=== PATIENT | male | born 1990 | race Caucasian/White ===

== ENCOUNTER → 2023-01-07 10:34 | Outpatient (CLI) | payer OTHER, SELFPAY ==
[2023-01-07 11:29] LABS: Add Manual Diff / Slide Review NO; Basophils Absolute Auto 100 /uL (0-100); Basophils Percent Auto 1.1 % (0-2); Eosinophils Absolute Auto 200 /uL (0-450); Eosinophils Percent Auto 3.6 % (2-4); Hematocrit 44.1 % (41-53); Hemoglobin 15.8 g/dL (13.5-17.5); Lymphocytes Absolute Auto 1900 /uL (1100-4500); Lymphocytes Percent Auto 38.2 % (25-40); Mean Corpuscular HGB Conc 35.7 % (30-36); Mean Corpuscular Hemoglobin 31.4 PG (26-34); Mean Corpuscular Volume 87.9 fL (80-100); Monocytes Absolute Auto 400 /uL (0-900); Neutrophils Absolute Auto 2400 /uL (1500-7000); Neutrophils Percent Auto 48.1 % (50-75); Platelet Count 189 X10^3/uL (150-400); Red Blood Cell Count 5.02 X10^6/uL (4.5-5.9); Red Cell Distribution Width 13.1 % (11.6-14.8)
[2023-01-07 11:49] LABS: Alanine Aminotransferase 36 IU/L (<50); Albumin 4.7 g/dL (3.5-5.0); Albumin Globulin Ratio 1.4 (1.0-2.8); Alkaline Phosphatase 88 U/L (38-126); Aspartate Aminotransferase 34 IU/L (17-59); BUN Creatinine Ratio 18.4 (6-22); Bilirubin Total 1.2 mg/dL (0.2-1.3); Blood Urea Nitrogen 18 mg/dL (9-20); Calcium 9.4 mg/dL (8.4-10.2); Carbon Dioxide 30 mmol/L (22-32); Chloride 100 mmol/L (98-107); Cholesterol 198 mg/dL (140-199); Estimated Glomerular Filt Rate > 60 mL/min (>60); Globulin 3.4 g/dL (1.7-4.1); Glucose 93 mg/dL (70-100); HDL Cholesterol 44 mg/dL (40-60); HEMOLYSIS < 15 (0-50); LDL Cholesterol Calculated 124 mg/dL (<100); Sodium 138 mmol/L (137-145); Total Protein 8.1 g/dL (6.3-8.2); Triglycerides 151 mg/dL (35-150)
[2023-01-07 12:25] LABS: TSH w/ Reflex to FT4 1.47 uIU/mL (0.47-4.68)
[2023-01-12 13:46] LABS: Percent Free Testosterone 3.56 % (1.50-4.20); Testosterone Total 356.8 ng/dL (264.0-916.0)
== END ==
PROVIDERS: PCP Family Medicine; Referring Provider Family Medicine; Visit Provider Family Medicine
DX: Z00.00 Encounter for general adult medical examination without abnormal findings (principal); R79.89 Other specified abnormal findings of blood chemistry
CPT/HCPCS: 36415; 80053; 80061; 84402; 84403; 84443; 85025

== ENCOUNTER → 2025-03-15 06:35 | Outpatient (CLI) | payer OTHER, SELFPAY ==
[2025-03-15 08:25] LABS: Add Manual Diff / Slide Review NO; Hematocrit 43.3 % (41-53); Hemoglobin 15.5 g/dL (13.5-17.5); Lymphocytes Absolute Auto 1800 /uL (1100-4500); Mean Corpuscular HGB Conc 35.9 % (30-36); Mean Corpuscular Hemoglobin 31.7 PG (26-34); Mean Corpuscular Volume 88.4 fL (80-100); Platelet Count 196 X10^3/uL (150-400)
[2025-03-15 08:40] LABS: HEMOLYSIS < 15 (0-50); Iron 91 ug/dL (49-181)
[2025-03-15 08:41] LABS: Alanine Aminotransferase 32 IU/L (<50); Albumin 4.7 g/dL (3.5-5.0); Albumin Globulin Ratio 1.7 (1.0-2.8); Alkaline Phosphatase 90 U/L (38-126); Blood Urea Nitrogen 14 mg/dL (9-20); Calcium 9.7 mg/dL (8.4-10.2); Carbon Dioxide 28 mmol/L (22-32); Chloride 102 mmol/L (98-107); Estimated Glomerular Filt Rate > 60 mL/min (>60); Globulin 2.8 g/dL (1.7-4.1); Glucose 97 mg/dL (70-99); HEMOLYSIS < 15 (0-50); Potassium 4.2 mmol/L (3.4-5.1); Sodium 139 mmol/L (137-145); Total Protein 7.5 g/dL (6.3-8.2)
[2025-03-15 08:52] LABS: Percent Iron Saturation 27 % (20-50); Total Iron Binding Capacity 338 ug/dL (261-462); Transferrin 282 mg/dL (206-381)
[2025-03-15 09:17] LABS: Ferritin 89 ng/mL (18-464)
[2025-03-16 21:39] LABS: Deamidated Gliadin Ab IgA 6 units (0-19); Deamidated Gliadin Ab IgG 4 units (0-19); Immunoglobulin A,Qn 293 mg/dL (90-386)
== END ==
PROVIDERS: PCP Student in an Organized Health Care Education/Training Program; Referring Provider Student in an Organized Health Care Education/Training Program; Visit Provider Student in an Organized Health Care Education/Training Program
DX: K62.5 Hemorrhage of anus and rectum (principal); K58.9 Irritable bowel syndrome, unspecified; E34.9 Endocrine disorder, unspecified
CPT/HCPCS: 36415; 80053; 82728; 82784; 83516; 83540; 83550; 84403; 85025

== ENCOUNTER 2025-04-14 10:24 | Day surgery (SDC) | payer OTHER, SELFPAY ==
--- NOTE | 2025-04-14 | PATH_ITS ---
[facility] Accession Number: [id number] No. of containers..01 Tissue . 01 Material submitted: . body - SIGMOID COLON . 01 Clinical history: . BIOPSY COLITIS UNCLEAR ETIOLOGY 9-19 PER OPERATIVE NOTE, SITE ID SIGMOID COLON /RR . 01 Diagnosis: SIGMOID COLON, BIOPSY: Colonic mucosa with nonspecific hemorrhage and congestion. Negative for active, chronic, and microscopic colitis. Negative for dysplasia and malignancy. . MRV 04/28/2025 1602 Local . 01 Electronically signed: . Rodney Chambers MD, PhD, Pathologist NPI- [id number] . 01 Gross description: . Received is one formalin-filled container labeled with the patient's name and labeled biopsy colitis, unclear etiology, are four fragments of boyd, soft tissue which range in size from 0.2 x 0.2 x 0.2 cm to 0.3 x 0.2 x 0.2 cm. All fragments are totally submitted in cassette A1. ([id number]) /HOLGER 04/22/2025 2316 Local . 01 Pathologist provided ICD-10: K62.5 . 01 CPT . 196071 Specimen Comment: A courtesy copy of this report has been sent to [facility] Pathology Performed at: [address] [address], [place], [place] [id number] MD Dominick Perez MD Phone: [phone]
--- NOTE | 2025-04-14 06:14 | PM.PREOP ---
Pre-operative Note Interval Note History & Physical reviewed/Exam performed by Physician: Yes Changes to H&P: No ASA Class (for procedural sedation): I
[2025-04-14] MEDS: LACTATED RINGERS 1,000 ML 42 ML IV (10:53)
[2025-04-14 10:54] VITALS: BP 118/68; PULSE 56; RESP 18; TEMP 36.8; O2SAT 98
--- NOTE | 2025-04-14 12:01 | P.OP.COLON_ITS ---
Operative Date/Time/Diagnoses Date of procedure: 04/14/25 Time of procedure: 12:39 Pre-op diagnosis: Rectal bleeding Post-op diagnosis: other (Nonspecific colitis, biopsies taken) Procedure & Clinicians Study performed: Colonoscopy with biopsy Same procedure(s) as scheduled: Yes Indications: 34yo M with rectal bleeding Surgeon: Anival Marinelli Anesthesia Type: MAC +/- Procedure Notes SCOAP/Timeout: Performed Procedure in detail: Colonoscopy Patient placed in left lateral recumbent position. Time out was performed. Procedural sedation was administered by anesthesia. Examination began with a thorough inspection of the perianal area. There was no evidence of fissures, fistulae, external hemorrhoids or cutaneous malignancy. The colonoscope was then placed into the rectum and the lumen was insufflated with carbon dioxide. The scope was carefully advanced forward. Ultimately the cecum was intubated and confirmed by identification of the ileocecal valve, the appendiceal orifice and the confluence of the taenia. The scope was then slowly withdrawn examining the colon thoroughly in all directions. In the rectum, retroflexion of the scope was performed for inspection of the distal rectum and anal canal. ?Significant colonoscopy findings: ?1. Quality of the preparation-good, [place] 3, improved with irrigation/suction ?2. Nonspecific colitis, mostly in sigmoid colon, random biopsies taken in areas of colitis, dilated veins throughout rectosigmoid likely related to inflammation. Biopsy sites required clips due to oozing consistent with colitis picture. No ulcerations. No maria a-anal lesions. No internal hemorrhoid column candidate for internal hemorrhoid banding. Await biopsy results Scope withdrawal time: 20 minutes Findings: colitis Specimen(s): other (sigmoid biopsies) Complications: none Impression: Colitis, non-specific, await biopsy results Post-procedure Recommendations: Will call with biopsy results Plan for aftercare: PACU then home Follow up: as needed Disposition: PACU
[2025-04-14 12:35] VITALS: BP 95/52; PULSE 62; RESP 18; TEMP 36.1; O2SAT 97
[2025-04-14 12:40] VITALS: BP 96/55; PULSE 56; RESP 14; O2SAT 98
[2025-04-14 12:45] VITALS: BP 97/52; PULSE 49; RESP 15; TEMP 36.1; O2SAT 98
[2025-04-14 12:50] VITALS: BP 107/66; PULSE 42; RESP 15; O2SAT 99
[2025-04-14 12:55] VITALS: BP 114/72; PULSE 43; RESP 10; O2SAT 100
== END 2025-04-14 13:10 | disposition home or self-care (01) ==
PROVIDERS: PCP Student in an Organized Health Care Education/Training Program; Referring Provider Surgery; Visit Provider Surgery
PROC: 0DJD8ZZ Inspection of Lower Intestinal Tract, Via Natural or Artificial Opening Endoscopic (ICD-10-PCS; CPT 45378; principal; 2025-04-14 11:30)
DX: K62.5 Hemorrhage of anus and rectum (principal); K52.9 Noninfective gastroenteritis and colitis, unspecified
CPT/HCPCS: 45380; J2704